=== PATIENT | male | born 1990 ===

== ENCOUNTER 2018-06-12 05:50 | Emergency (ER) | payer SELFPAY ==
[2018-06-12 05:51] VITALS: BMI 31.0
[2018-06-12 06:05] VITALS: BP 134/90; PULSE 90; TEMP 97.7; O2SAT 100
--- NOTE | 2018-06-12 06:30 | C.PDOC ---
History Of Present Illness 27 y/o male presents to the ED complaining of pain to the upper posterior neck, onset this morning. Patient reports, like every morning, he woke up and began forcibly rolling his neck and forced extension and flexion. Immediately after patient felt pain and a pop, associated with paresthesias to the bilateral arms. Symptoms gradually resolved prior to arrival. Patient admits to smoking marijuana. Time Seen by Provider: 06/12/18 06:17 Chief Complaint (Nursing): Medical Clearance History Per: Patient History/Exam Limitations: no limitations Onset/Duration Of Symptoms: Mins Current Symptoms Are (Timing): Better Past Medical History Reviewed: Historical Data, Nursing Documentation, Vital Signs Vital Signs: Last Vital Signs Temp 97.7 F 06/12/18 06:00 Pulse 90 06/12/18 06:00 Resp 16 06/12/18 06:00 BP 134/90 06/12/18 06:00 Pulse Ox 100 06/12/18 06:00 - Medical History PMH: Asthma, HIV Denies: Colonic Polyps Surgical History: Denies: Endoscopy - [facility] Procedures TETANUS TOXOID ADMINIST (02/24/14) Family History: States: Unknown Family Hx - Social History Hx Tobacco Use: Yes Hx Alcohol Use: Yes Hx Substance Use: Yes (marijuana) - Immunization History Hx Tetanus Toxoid Vaccination: No Hx Influenza Vaccination: No Hx Pneumococcal Vaccination: No Review Of Systems Except As Marked, All Systems Reviewed And Found Negative. Constitutional: Negative for: Fever Eyes: Negative for: Vision Change Respiratory: Negative for: Shortness of Breath Gastrointestinal: Negative for: Nausea, Vomiting Musculoskeletal: Positive for: Neck Pain. Negative for: Back Pain Neurological: Positive for: Numbness (Paresthesias down b/l arms). Negative for: Weakness, Headache, Dizziness Physical Exam - Physical Exam Appears: Non-toxic, No Acute Distress, Other (Mild marijuana intoxication) Skin: Warm, Dry Head: Atraumatic, Normacephalic Eye(s): bilateral: Normal Inspection, PERRL, EOMI Oral Mucosa: Moist Neck: Normal ROM (full painless ROM of the neck), No Midline Cervical Tenderness, No Step Off Deformity, Supple Chest: Symmetrical Cardiovascular: Rhythm Regular, No Murmur Respiratory: Normal Breath Sounds, No Accessory Muscle Use Extremity: Bilateral: Atraumatic, Normal Color And Temperature, Normal ROM (x4) Pulses: Left Radial: Normal, Right Radial: Normal Neurological/Psych: Oriented x3, Normal Cranial Nerves, Normal Motor, Normal Sensation, Other (Neurologically intact) Gait: Steady ED Course And Treatment O2 Sat by Pulse Oximetry: 100 (RA) Pulse Ox Interpretation: Normal - CT Scan/US CT C-Spine Other Rad Studies (CT/US): Radiology Report Reviewed (no fx/disloc, + straightening) Reevaluation Time: 07:04 Reassessment Condition: Improved Medical Decision Making Medical Decision Making: Initial Plan: Motrin PO given for pain CT Cervical Spine ordered cervical strain ? self-induced fx/disloc of facet/disk? [address] pending, signed over to Day MD Disposition - Disposition Disposition Time: 07:00 Condition: GOOD Forms: [email or web address] (Yi) - Clinical Impression Clinical Impression: Neck pain, acute - Scribe Statement The provider has reviewed the documentation as recorded by the Sunni Pate Provider Attestation: All medical record entries made by the Waleskaibchristen were at my direction and personally dictated by me. I have reviewed the chart and agree that the record accurately reflects my personal performance of the history, physical exam, medical decision making, and the department course for this patient. I have also personally directed, reviewed, and agree with the discharge instructions and disposition.
[2018-06-12 07:18] VITALS: RESP 18
--- NOTE | 2018-06-12 08:38 | CT ---
Date of service: 06/12/2018 PROCEDURE: CT Cervical Spine without contrast HISTORY: upper posterior neck, forced self rolling/rotating COMPARISON: None available. TECHNIQUE: Axial computed tomography images were obtained of the cervical spine without the use of intravenous contrast. Coronal and sagittal reformatted images were created and reviewed. Radiation dose: Total exam DLP = 586.59 mGy-cm. This CT exam was performed using one or more of the following dose reduction techniques: Automated exposure control, adjustment of the mA and/or kV according to patient size, and/or use of iterative reconstruction technique. FINDINGS: VERTEBRAE: Vertebral body heights are maintained. Normal cervical lordosis is maintained. Small anterior osteophyte formation at C5. There is multilevel small posterior osteophyte formation. DISCS/SPINAL CANAL/NEURAL FORAMINA: Disc space heights are preserved. C4-C5: Disc herniation produces mild spinal canal stenosis. C5-C6: Disc herniation. No significant spinal canal stenosis. C6-C7: Disc osteophyte complex produces minimal spinal canal stenosis. PARASPINAL SOFT TISSUES: There is no prevertebral soft tissue swelling. OTHER FINDINGS: Visualized portions of the thyroid gland are heterogeneous. There is increased soft tissue density in the anterior mediastinum, likely residual/rebound thymic tissue. Visualized portions of the lung apices are clear. IMPRESSION: No cervical spine fracture or subluxation identified. Multilevel spinal canal stenosis as above. Minimal degenerative changes as above. Preliminary impression was provided by the Teleradiology service. Findings are concordant.
== END 2018-06-12 07:18 | disposition home or self-care (01) ==
LOC: C.ER 05:50
DX: M54.2 Cervicalgia (principal)